=== PATIENT | female | born 2000 | race Caucasian/White ===

== ENCOUNTER 2024-03-25 00:48 | Emergency (ER) | payer SELFPAY ==
[~2024-03-25] VITALS: Ht 157.4 cm; Wt 95.3 kg
[2024-03-25] MEDS ORDERED: ZITHROMAX250 MG PO (02:09)
[2024-03-25] MEDS ORDERED: NEO/POLYMYX B SULF/DEXAMETH 200 DRP BOT OT ONE (02:10)
[2024-03-25] MEDS ORDERED: AZITHROMYCIN 250 MG TAB PO ONE (02:10)
== END 2024-03-25 02:24 | disposition home or self-care (01) ==
LOC: ED 00:48
DX: H60.332 Swimmer's ear, left ear (principal); Z88.0 Allergy status to penicillin; Z88.1 Allergy status to other antibiotic agents

== ENCOUNTER 2024-07-01 17:21 | Emergency (ER) | payer SELFPAY ==
[~2024-07-01] VITALS: Ht 157.4 cm; Wt 97.5 kg
[~2024-07-01 17:21] MED LIST: ZITHROMAX250 MG PO
[2024-07-01] MEDS ORDERED: CLINDAMYCIN HC300 MG PO (17:49)
== END 2024-07-01 17:53 | disposition home or self-care (01) ==
LOC: ED 17:21
DX: K08.89 Other specified disorders of teeth and supporting structures (principal); Z88.0 Allergy status to penicillin; Z88.1 Allergy status to other antibiotic agents

== ENCOUNTER 2024-07-30 07:31 | Emergency (ER) | payer SELFPAY ==
[~2024-07-30] VITALS: Ht 152.4 cm; Wt 99.8 kg
[~2024-07-30 07:31] MED LIST changes: +CLINDAMYCIN HC300 MG PO
[2024-07-30] MEDS ORDERED: Acetaminophen/Oxycodone 5 MG/325 MG TABLET PO ONE (07:50)
[2024-07-30] MEDS ORDERED: CLINDAMYCIN HCL 300 MG CAPSULE PO ONE (07:50)
[2024-07-30] MEDS ORDERED: MELOXICAM15 MG PO (07:50)
[2024-07-30] MEDS ORDERED: CLINDAMYCIN HC300 MG PO (07:50)
== END 2024-07-30 08:00 | disposition home or self-care (01) ==
LOC: ED 07:31
DX: S02.5XXA Fracture of tooth (traumatic), initial encounter for closed fracture (principal); K04.7 Periapical abscess without sinus; R22.0 Localized swelling, mass and lump, head; Z87.442 Personal history of urinary calculi; Z88.0 Allergy status to penicillin; Z88.1 Allergy status to other antibiotic agents; Z98.890 Other specified postprocedural states; X58.XXXA Exposure to other specified factors, initial encounter; Y93.89 Activity, other specified; Y92.89 Other specified places as the place of occurrence of the external cause; Y99.8 Other external cause status

== ENCOUNTER 2024-08-08 08:07 | Emergency (ER) | payer SELFPAY ==
[~2024-08-08] VITALS: Ht 152.4 cm; Wt 102.1 kg
[~2024-08-08 08:07] MED LIST changes: +MELOXICAM15 MG PO
[2024-08-08] MEDS ORDERED: MORPHINE Sulfate 2 MG/ML SYR IV ONE (08:25)
[2024-08-08] MEDS ORDERED: SODIUM CHLORIDE 0.9% 1,000 ML IV ONE (08:25)
[2024-08-08] MEDS ORDERED: Ketorolac Tromethamine 15 MG/ML VIAL IV ONE (08:25)
[2024-08-08] MEDS ORDERED: Ondansetron Hydrochloride 4 MG/2 ML VIAL IV ONE (08:25)
[2024-08-08 09:01] LABS: BILIRUBIN Negative (Negative); BLOOD 2+ (Negative); CLARITY Clear (Clear); COLOR Yellow (Yellow); GLUCOSE Negative (Negative); KETONE Negative (Negative); LEUKO ESTERASE 3+ (Negative); NITRITE Negative (Negative); PH 7.5 (4.5-8.0); SPECIFIC GRAVITY 1.015 (1.001-1.030); UROBILINOGEN 0.2 E.U./dl (0.0-1.0)
[2024-08-08 09:29] LABS: BASO % 0.2 % (0.0-1.0); HEMATOCRIT 42.9 % (37.0-47.0); MEAN CORPUSCULAR HGB 29.3 pg (27.0-31.0); MEAN PLATELET VOLUME 9.6 fl (9.6-12.3); MONO # 0.9 10*3/uL (0.1-1.0); MONO % 4.7 % (3.0-9.0); NEUT # 16.3 10*3/uL (2.3-7.9); NEUT % 85.8 % (47.0-73.0); PLATELET COUNT AUTOMATED 316 10*3/uL (130-400); RED BLOOD COUNT 4.99 10*6/uL (4.10-5.10); RED CELL DISTRI WIDTH 12.2 % (0-14.5)
[2024-08-08 09:30] LABS: BACTERIA 3+; RBC TNTC rbc/hpf (0-2); WBC TNTC wbc/hpf (0-5)
[2024-08-08] MEDS ORDERED: Ceftriaxone Sodium 1 GM/10 ML SYR IV ONE (09:35)
[2024-08-08] MEDS ORDERED: CIPRO500 MG PO (09:43)
[2024-08-08 09:50] LABS: BUN 7 mg/dl (9-23); CHLORIDE 106 mmol/L (98-107); POTASSIUM 4.1 mmol/L (3.4-5.1)
== END 2024-08-08 09:44 | disposition home or self-care (01) ==
LOC: ED 08:07
PROVIDERS: Emergency Medicine
DX: N13.2 Hydronephrosis with renal and ureteral calculous obstruction (principal); N39.0 Urinary tract infection, site not specified; R31.9 Hematuria, unspecified; R11.2 Nausea with vomiting, unspecified; Z88.0 Allergy status to penicillin; Z88.1 Allergy status to other antibiotic agents; Z98.890 Other specified postprocedural states

== ENCOUNTER 2024-08-21 20:35 | Emergency (ER) | payer SELFPAY ==
[~2024-08-21] VITALS: Ht 157.4 cm; Wt 99.8 kg
[~2024-08-21 20:35] MED LIST changes: +CIPRO500 MG PO
[2024-08-21] MEDS ORDERED: Lidocaine Hydrochloride 15 ML UDC PO STA (20:53)
[2024-08-21] MEDS ORDERED: BENZOCAINE 20% 11.9 GM GEL T STA (20:53)
[2024-08-21] MEDS ORDERED: Acetaminophen/Hydrocodone 5 MG/325 MG TABLET PO ONE (20:55)
== END 2024-08-21 21:05 | disposition home or self-care (01) ==
LOC: ED 20:35
DX: K08.89 Other specified disorders of teeth and supporting structures (principal); Z87.442 Personal history of urinary calculi; Z88.0 Allergy status to penicillin; Z88.1 Allergy status to other antibiotic agents; Z98.890 Other specified postprocedural states

== ENCOUNTER 2024-11-03 08:13 | Emergency (ER) | payer SELFPAY ==
[~2024-11-03] VITALS: Wt 115.7 kg
[2024-11-03] MEDS ORDERED: FAMOTIDINE 50 ML IV ONE (08:35)
[2024-11-03] MEDS ORDERED: SODIUM CHLORIDE 0.9% 1,000 ML IV ONE (08:35)
[2024-11-03 08:51] LABS: BASO % 0.3 % (0.0-1.0); EOS % 0.2 % (1.0-4.0); HEMATOCRIT 41.5 % (37.0-47.0); MEAN CELL VOLUME 87.7 fl (81.0-99.0); MEAN CORPUSCULAR HGB 29.6 pg (27.0-31.0); MEAN CORPUSCULAR HGB CONC 33.7 g/dl (33.0-37.0); MEAN PLATELET VOLUME 9.5 fl (9.6-12.3); MONO # 0.6 10*3/uL (0.1-1.0); MONO % 6.1 % (3.0-9.0); NEUT # 7.4 10*3/uL (2.3-7.9); NEUT % 76.5 % (47.0-73.0); PLATELET COUNT AUTOMATED 312 10*3/uL (130-400); RED BLOOD COUNT 4.73 10*6/uL (4.10-5.10); RED CELL DISTRI WIDTH 12.1 % (0-14.5); WHITE BLOOD COUNT 9.7 10*3/uL (4.8-10.8)
[2024-11-03 09:13] LABS: BILIRUBIN Negative (Negative); BLOOD Negative (Negative); CLARITY Clear (Clear); COLOR Yellow (Yellow); GLUCOSE Negative (Negative); KETONE Negative (Negative); LEUKO ESTERASE Negative (Negative); NITRITE Negative (Negative); PH 6.5 (4.5-8.0); UROBILINOGEN 0.2 E.U./dl (0.0-1.0)
[2024-11-03 09:19] LABS: BUN 8 mg/dl (9-23); CHLORIDE 105 mmol/L (98-107); LIPASE 27 U/L (12-53)
[2024-11-03 09:20] LABS: B-hCG (QUALITATIVE) NEGATIVE (NEGATIVE)
[2024-11-03 09:26] LABS: RBC 0-2 rbc/hpf (0-2)
[2024-11-03] MEDS ORDERED: PEPCID20 MG PO (09:33)
== END 2024-11-03 09:38 | disposition home or self-care (01) ==
LOC: ED 08:13
PROVIDERS: Emergency Medicine
DX: R10.10 Upper abdominal pain, unspecified (principal); Z79.899 Other long term (current) drug therapy; Z88.0 Allergy status to penicillin; Z88.1 Allergy status to other antibiotic agents

== ENCOUNTER 2024-11-22 07:40 | Emergency (ER) | payer SELFPAY ==
[~2024-11-22] VITALS: Ht 152.4 cm; Wt 81.6 kg
[~2024-11-22 07:40] MED LIST changes: +PEPCID20 MG PO
[2024-11-22] MEDS ORDERED: CLINDAMYCIN HC300 MG PO (08:10)
== END 2024-11-22 08:30 | disposition home or self-care (01) ==
LOC: ED 07:40
DX: K04.7 Periapical abscess without sinus (principal); Z88.0 Allergy status to penicillin; Z88.1 Allergy status to other antibiotic agents

== ENCOUNTER 2025-05-12 14:02 | Emergency (ER) | payer OTHER ==
[~2025-05-12] VITALS: Ht 152.4 cm; Wt 86.2 kg
[2025-05-12] MEDS ORDERED: IOHEXOL 300 MG/ML 100 ML VIAL IV ONE (14:30)
[2025-05-12] MEDS ORDERED: ACETAMINOPHEN 325 MG TAB PO ONE (15:05)
[2025-05-12 15:17] LABS: BILIRUBIN Negative (Negative); BLOOD Negative (Negative); CLARITY Clear (Clear); COLOR Yellow (Yellow); KETONE Negative (Negative); LEUKO ESTERASE Negative (Negative); NITRITE Negative (Negative); PH 7.5 (4.5-8.0); SPECIFIC GRAVITY 1.020 (1.001-1.030); UROBILINOGEN 0.2 E.U./dl (0.0-1.0)
[2025-05-12 15:47] LABS: BACTERIA 3+; EPITHELIAL CELLS 16-20
[2025-05-12] MEDS ORDERED: METHOCARBAMOL500 M1 PO (16:34)
== END 2025-05-12 17:02 | disposition home or self-care (01) ==
LOC: ED 14:02
PROVIDERS: Nurse Practitioner Family
DX: S01.511A Laceration without foreign body of lip, initial encounter (principal); R10.20 Pelvic and perineal pain unspecified side; Z88.0 Allergy status to penicillin; Z88.1 Allergy status to other antibiotic agents; V43.52XA Car driver injured in collision with other type car in traffic accident, initial encounter; Y93.89 Activity, other specified; Y92.488 Other paved roadways as the place of occurrence of the external cause; Y99.8 Other external cause status